=== PATIENT | male | born 1990 | race American Indian/Alaskan Native ===

== ENCOUNTER 2021-11-04 19:27 | Emergency (ER) | payer MEDICAID ==
[2021-11-04 19:51] VITALS: BP 124/78
== END 2021-11-04 21:56 | disposition left against medical advice (07) ==
LOC: ED 19:27
DX: M25.579 Pain in unspecified ankle and joints of unspecified foot (principal); Z53.21 Procedure and treatment not carried out due to patient leaving prior to being seen by health care provider